=== PATIENT | female | born 1955 | race Caucasian/White ===

== ENCOUNTER 2019-07-20 16:26 | Emergency (ER) | payer OTHER ==
[~2019-07-20] VITALS: Ht 172.7 cm; Wt 77.1 kg
[~2019-07-20 16:26] MED LIST: ASCO500 PO; FOLI400; METTREX2.5; NAPR220; OMEP20ER; Vitamin D2000 UNIT PO
[2019-07-20] MEDS ORDERED: Percocet 5-3251 EACH PO (19:11)
[2019-07-20] MEDS ORDERED: SULINDAC200 MG PO (20:46)
== END 2019-07-20 20:08 | disposition home or self-care (01) ==
LOC: ER 16:26
DX: S52.531A Colles' fracture of right radius, initial encounter for closed fracture (principal); K21.9 Gastro-esophageal reflux disease without esophagitis; M06.9 Rheumatoid arthritis, unspecified; Z79.899 Other long term (current) drug therapy; Z88.8 Allergy status to other drugs, medicaments and biological substances; Z91.040 Latex allergy status; V80.010A Animal-rider injured by fall from or being thrown from horse in noncollision accident, initial encounter
CPT/HCPCS: 25605; 76000; 96374-59; 99152; 99153; 99283-25; A9270; J2704; J3010; J7030